=== PATIENT | female | born 1995 | race Hispanic/Latino ===

== ENCOUNTER 2025-03-13 19:09 | Emergency (ER) | payer OTHER ==
[~2025-03-13] VITALS: Ht 160 cm; Wt 77.1 kg
[~2025-03-13 19:09] MED LIST: FIORICET 50-301 EACH PO; ONDANSETRON ODT4 MG PO
[2025-03-13 19:38] VITALS: PULSE 65; RESP 18; TEMP 98.3
[2025-03-13] MEDS: LACTATED RINGER'S 1,000 ML INJ ONE (20:08)
[2025-03-13] MEDS: KETOROLAC TROMETHAMINE 30 MG/ML VIAL IV ONE (20:08)
[2025-03-13] MEDS: ONDANSETRON HCL INJ 2MG/ML 2ML 2 MG/ML VIAL IV ONE (20:08)
[2025-03-13] MEDS: FAMOTIDINE 20 MG/2 ML VIAL IV ONE (20:08)
[2025-03-13] MEDS ORDERED: MAALOX MAXIMUM355 ML PO (20:14)
[2025-03-13] MEDS ORDERED: FAMOTIDINE20 MG PO (20:14)
[2025-03-13] MEDS ORDERED: ONDANSETRON ODT4 MG PO (20:14)
[2025-03-13 21:48] VITALS: BP 129/67; PULSE 62; RESP 18; TEMP 98.3; O2SAT 99
== END 2025-03-13 21:48 | disposition home or self-care (01) ==
LOC: FSED 19:13
DX: R11.2 Nausea with vomiting, unspecified (principal); K52.9 Noninfective gastroenteritis and colitis, unspecified; E86.0 Dehydration; R10.30 Lower abdominal pain, unspecified
CPT/HCPCS: 74176; 80048; 80076; 81003; 81025; 85025; 96374; 96375; 99284; J1885; J2405; J7121